=== PATIENT | female | born 1965 | race Caucasian/White ===

== ENCOUNTER 2017-05-16 13:13 | Emergency (ER) | payer SELFPAY ==
[2017-05-16] MEDS ORDERED: LIDOCAINE 2% VISCOUS SOLN 20 ML UDCUP PO ONE (13:40)
[2017-05-16] MEDS ORDERED: MAG HYDROX/AL HYDROX/SIMETH SUSP 30 ML UDCUP PO ONE (13:40)
[2017-05-16] MEDS ORDERED: METOCLOPRAMIDE HCL ORAL SOLN 10 MG/10 ML UDCUP PO ONE (13:40)
--- NOTE | 2017-05-16 13:44 | ER Document Report ---
Addendum entered and electronically signed by WILLEM DUKE MA 05/17/17 16:10 : Discharge - Discharge Clinical Impression: Suicidal ideation Condition: Stable Disposition: HOME, SELF-CARE Additional Instructions: DEPRESSION: Your evaluation reveals that you have mental depression. While symptoms may be vague, they often include disturbance of sleep, fatigue, loss of appetite , and general loss of interest in life. While depression may be a side effect of drugs, or a reaction to a major change in your life, many cases have no known cause. If depression is acute, and related to a major loss in your life, you can expect it to clear completely with time. If you have been depressed a long time , are prone to repeated bouts of depression or low mood, or have been thinking of suicide, get help. Depression can be treated with anti-depressant medication and counselling. Long-term depression will often take a few weeks to clear, even with appropriate medication. Follow-up care is important. SUICIDAL IDEATION: Suicidal ideation is a common medical term for thoughts about suicide, which may be as detailed as a formulated plan, without the suicidal act itself. Although most people who undergo suicidal ideation do not commit suicide, some go on to make suicide attempts. The range of suicidal ideation varies greatly from fleeting to detailed planning, role playing, and unsuccessful attempts. While thoughts about suicide are common, most people do not carry out serious actions to commit suicide. Based upon your evaluation and discussion with you, we do not believe you are currently at risk to act upon your thoughts of suicide. You have agreed to return to the Emergency Department, at any time , if you feel inclined to act upon your suicidal thoughts. FOLLOW-UP CARE: You have been given a list of community providers for outpatient therapy and medication management. It has been recommended for you to follow up with [facility] services for therapy and medication management but if you choose not to follow up with this provider you are encouraged to choose from any of the other providers in the community to establish care. Included in the resource list are the numbers for [facility] to utilize as needed. If you experience worsening or a significant change in your symptoms, notify the physician immediately or return to the Emergency Department at any time for re-evaluation. Referrals: [facility] [Outside] - Follow up as needed Original Note: ED Medical Screen (RME) - General Mode of Arrival: Wheelchair Information source: Patient - HPI Patient complains to provider of: SI and abdominal pain Onset: Other - see notes above Associated Symptoms: Other - see notes above <JOE BRIONES - Last Filed: 05/16/17 13:39> <WILLEM DUKE - Last Filed: 05/17/17 16:07> <NILSMANINDER Levi - Last Filed: 05/17/17 16:18> - General Chief Complaint: Suicidal Ideation Stated Complaint: PSYCH EVAL Time Seen by Provider: 05/16/17 13:33 Notes: 52 year old female with history of depression presents to the ED complaining of suicidal ideation and epigastric abdominal pain that has been intermittent for 3 years, but exacerbated a few days ago. Patient reports that today is the 2nd year anniversary of her 's . Patient has no plan and hasn't taken any medications. Patient reports that it feels like her 'rib is stabbing her'. Patient additionally complains of vomiting for the past 3 days only being able to keep water and coffee down. Patient also complains that her 'head is about to bust.' Patient reports she does not take any medication for suicidal ideation as she can't afford them. (JOE BRIONES) Past Medical History - General Information source: Patient - Social History Family history: Reviewed & Not Pertinent <JOE BRIONES - Last Filed: 05/16/17 13:39> Review of Systems - Review of Systems Constitutional: No symptoms reported EENT: No symptoms reported Cardiovascular: No symptoms reported Respiratory: No symptoms reported Gastrointestinal: See HPI, Abdominal pain, Vomiting Genitourinary: No symptoms reported Female Genitourinary: No symptoms reported Musculoskeletal: No symptoms reported Skin: No symptoms reported Hematologic/Lymphatic: No symptoms reported Neurological/Psychological: See HPI, Suicidal ideation -: Yes All other systems reviewed and negative <JOE BRIONES - Last Filed: 05/16/17 13:39> Physical Exam - General General appearance: Alert, Other - Tearful In distress: None - HEENT Head: Normocephalic, Atraumatic Eyes: Normal Extraocular movements intact: Yes Pupils: PERRL - Respiratory Respiratory status: No respiratory distress Breath sounds: Normal - Cardiovascular Rhythm: Regular Heart sounds: Normal auscultation - Abdominal Inspection: Normal Bowel sounds: Normal Tenderness: Tender - epigastric - Psychological Associated symptoms: Tearful <JOE BRIONES - Last Filed: 05/16/17 13:39> - Vital signs Vitals: Temp Pulse Resp BP Pulse Ox 98.6 F 95 22 H 139/107 H 96 05/16/17 13:19 05/16/17 13:19 05/16/17 13:19 05/16/17 13:19 05/16/17 13:19 Course - Laboratory Result Diagrams: 05/16/17 14:20 05/16/17 14:20 <MANINDER WRAY - Last Filed: 05/17/17 16:18> - Vital Signs Vital signs: Temp Pulse Resp BP Pulse Ox 98.5 F 77 16 126/73 H 94 05/17/17 13:40 05/17/17 13:40 05/17/17 13:40 05/17/17 13:40 05/17/17 13:40 - Laboratory Laboratory results interpreted by me: 05/16/17 05/16/17 05/16/17 14:20 14:20 14:20 WBC 12.1 H RBC 5.34 H Hgb 16.6 H Hct 49.4 H Absolute Neutrophils 9.0 H Calcium 10.3 H Urine Protein 100 H Urine Blood SMALL H Urine Urobilinogen 2.0 H Ur Leukocyte Esterase TRACE H Salicylates < 1.0 L Acetaminophen < 10 L Doctor's Discharge <BRIONESJOE - Last Filed: 05/16/17 13:39> <WILLEM DUKE - Last Filed: 05/17/17 16:07> <MANINDER WRAY - Last Filed: 05/17/17 16:18> - Discharge Clinical Impression: Suicidal ideation Condition: Stable Disposition: HOME, SELF-CARE Additional Instructions: DEPRESSION: Your evaluation reveals that you have mental depression. While symptoms may be vague, they often include disturbance of sleep, fatigue, loss of appetite , and general loss of interest in life. While depression may be a side effect of drugs, or a reaction to a major change in your life, many cases have no known cause. If depression is acute, and related to a major loss in your life, you can expect it to clear completely with time. If you have been depressed a long time , are prone to repeated bouts of depression or low mood, or have been thinking of suicide, get help. Depression can be treated with anti-depressant medication and counselling. Long-term depression will often take a few weeks to clear, even with appropriate medication. Follow-up care is important. SUICIDAL IDEATION: Suicidal ideation is a common medical term for thoughts about suicide, which may be as detailed as a formulated plan, without the suicidal act itself. Although most people who undergo suicidal ideation do not commit suicide, some go on to make suicide attempts. The range of suicidal ideation varies greatly from fleeting to detailed planning, role playing, and unsuccessful attempts. While thoughts about suicide are common, most people do not carry out serious actions to commit suicide. Based upon your evaluation and discussion with you, we do not believe you are currently at risk to act upon your thoughts of suicide. You have agreed to return to the Emergency Department, at any time , if you feel inclined to act upon your suicidal thoughts. FOLLOW-UP CARE: You have been given a list of community providers for outpatient therapy and medication management. It has been recommended for you to follow up with [facility] for therapy and medication management but if you choose not to follow up with this provider you are encouraged to choose from any of the other providers in the community to establish care. Included in the resource list are the numbers for Mobile [facility] to utilize as needed. If you experience worsening or a significant change in your symptoms, notify the physician immediately or return to the Emergency Department at any time for re-evaluation. Prescriptions: Divalproex Sodium [Depakote] 500 mg PO DAILY #14 tablet. Referrals: [facility] [Outside] - Follow up as needed Scribe Documentation - Scribe Written by Silvioe:: Melvin Sol, 05/16/2017 [id number] acting as scribe for :: Long <JOE BRIONES - Last Filed: 05/16/17 13:39>
[2017-05-16 14:35] LABS: ABSOLUTE BASOPHILS # (AUTO) 0.1 10^3/uL (0.0-0.2); ABSOLUTE EOSINOPHILS # (AUTO) 0.1 10^3/uL (0.0-0.6); ABSOLUTE LYMPHOCYTES (AUTO) 2.1 10^3/uL (0.5-4.7); ABSOLUTE MONOCYTES (AUTO) 0.8 10^3/uL (0.1-1.4); BASOPHILS % (AUTO) 1.1 % (0-2); HEMATOCRIT 49.4 % (36.0-47.0); HEMOGLOBIN 16.6 g/dL (12.0-15.5); LYMPHOCYTES % (AUTO) 17.3 % (13-45); MEAN CORPUSCULAR HEMOGLOBIN 31.1 pg (27.0-33.4); MEAN CORPUSCULAR HGB CONC 33.6 g/dL (32.0-36.0); MEAN CORPUSCULAR VOLUME 93 fl (80-97); MONOCYTES % (AUTO) 6.3 % (3-13); PLATELET COUNT 293 10^3/uL (150-450); RED BLOOD COUNT 5.34 10^6/uL (3.72-5.28); RED CELL DISTRIBUTION WIDTH 13.4 % (11.5-14.0); SEGMENTED NEUTROPHILS % (AUTO) 74.3 % (42-78); TOTAL CELLS COUNTED % (AUTO) 100 %; WHITE BLOOD COUNT 12.1 10^3/uL (4.0-10.5)
--- NOTE | 2017-05-16 14:46 | RADIOLOGY REPORT (SQ) ---
EXAM DESCRIPTION: CHEST SINGLE VIEW COMPLETED DATE/TIME: 05/16/2017 2:37 pm REASON FOR STUDY: epigastric pain COMPARISON: None. NUMBER OF VIEWS: One view. TECHNIQUE: Single frontal radiographic view of the chest acquired. LIMITATIONS: None. FINDINGS: LUNGS AND PLEURA: No opacities, masses or pneumothorax. No pleural effusion. MEDIASTINUM AND HILAR STRUCTURES: Suspect a small hiatal hernia. No suspicious contour abnormalities . HEART AND VASCULAR STRUCTURES: Heart normal in size. Normal vasculature. BONES: No acute findings. HARDWARE: None in the chest. OTHER: No other significant finding. IMPRESSION: No acute cardiopulmonary disease. Probable small hiatal hernia. TECHNICAL DOCUMENTATION: JOB ID: [id number] [employer]- All Rights Reserved
[2017-05-16 14:49] LABS: APPEARANCE,URINE CLOUDY; BILIRUBIN,URINE NEGATIVE (NEGATIVE); COLOR,URINE YELLOW; GLUCOSE, URINE NEGATIVE (NEGATIVE); KETONES,URINE NEGATIVE (NEGATIVE); LEUKOCYTE ESTERASE,URINE TRACE (NEGATIVE); NITRITE,URINE NEGATIVE (NEGATIVE); PROTEIN,URINE 100 mg/dL (NEGATIVE); URINE SPECIFIC GRAVITY 1.015
[2017-05-16 14:53] LABS: ALANINE AMINOTRANSFERASE 22 U/L (9-52); ALKALINE PHOSPHATASE 85 U/L (38-126); ANION GAP 14 (5-19); ASPARTATE AMINO TRANSFERASE 17 U/L (14-36); BILIRUBIN,DIRECT 0.4 mg/dL (0.0-0.4); BILIRUBIN,TOTAL 0.4 mg/dL (0.2-1.3); BLOOD UREA NITROGEN 8 mg/dL (7-20); CALCIUM 10.3 mg/dL (8.4-10.2); CARBON DIOXIDE 27 mmol/L (22-30); CHLORIDE 104 mmol/L (98-107); CREATINE KINASE 69 U/L (30-135); GLUCOSE 102 mg/dL (75-110); POTASSIUM 4.6 mmol/L (3.6-5.0); SODIUM 144.5 mmol/L (137-145); TOTAL PROTEIN 8.2 g/dL (6.3-8.2)
--- NOTE | 2017-05-16 14:56 | RADIOLOGY REPORT (SQ) ---
EXAM DESCRIPTION: KUB/ABDOMEN (SINGLE VIEW) COMPLETED DATE/TIME: 05/16/2017 2:37 pm REASON FOR STUDY: epigastric pain COMPARISON: None. NUMBER OF VIEWS: One view. TECHNIQUE: Supine radiographic image of the abdomen acquired. LIMITATIONS: None. FINDINGS: BOWEL GAS PATTERN: Scattered non-dilated small bowel loops. No obstructive pattern. CALCIFICATIONS: No suspicious calcifications. SOFT TISSUES: No gross mass or suggestion of organomegaly. HARDWARE: None in the abdomen.. BONES: No acute fracture. No worrisome bone lesions. OTHER: No other significant finding. IMPRESSION: NON-SPECIFIC BOWEL GAS PATTERN WITHOUT EVIDENCE FOR OBSTRUCTION. TECHNICAL DOCUMENTATION: JOB ID: [id number] [employer]- All Rights Reserved
[2017-05-16 15:02] LABS: URINE AMPHETAMINES SCREEN NEGATIVE; URINE BARBITURATES SCREEN NEGATIVE; URINE BENZODIAZEPINES SCREEN NEGATIVE; URINE COCAINE SCREEN NEGATIVE; URINE MARIJUANA (THC) SCREEN UNCONFIRMED POSITIVE; URINE METHADONE SCREEN NEGATIVE; URINE PHENCYCLIDINE SCREEN NEGATIVE
[2017-05-16 15:09] LABS: ACETAMINOPHEN < 10 ug/mL (10-30); ALCOHOL < 10 mg/dL (NONE DETECTED); SALICYLATE < 1.0 mg/dL (2.0-20.0)
[2017-05-16] MEDS ORDERED: ONDANSETRON 4 MG TAB.RAPDIS PO ONE (16:30)
[2017-05-16] MEDS ORDERED: ACETAMINOPHEN 325 MG TABLET PO ONE (16:41)
[2017-05-16] MEDS ORDERED: MIDAZOLAM 2 MG/2 ML INJ IV ONE (16:43)
[2017-05-16] MEDS ORDERED: FENTANYL CITRATE INJ/PF 100 MCG/2 ML AMPUL IV ONE (16:44)
[2017-05-16] MEDS ORDERED: CITALOPRAM HYDROBROMIDE 20 MG TABLET PO ONE (16:48)
[2017-05-16] MEDS ORDERED: BUSPIRONE HCL 10 MG TABLET PO ONE (16:49)
[2017-05-16] MEDS ORDERED: PAROXETINE HCL 20 MG TABLET PO ONE (16:57)
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
--- NOTE | 2017-05-16 17:15 | RADIOLOGY REPORT (SQ) ---
EXAM DESCRIPTION: CT HEAD WITHOUT COMPLETED DATE/TIME: 05/16/2017 5:02 pm REASON FOR STUDY: CELESTE COMPARISON: None. TECHNIQUE: Axial images acquired through the brain without intravenous contrast. Images reviewed wi th bone, brain and subdural windows. Images stored on PACS. All CT scanners at this facility use dose modulation, iterative reconstruction, and/or weight based d osing when appropriate to reduce radiation dose to as low as reasonably achievable (ALARA). [facility]: Dose Right [facility]: CareDose [facility]: Dose Right [facility]: Teradose 4D [facility]: timeplazza RADIATION DOSE: CT Rad equipment meets quality standard of care and radiation dose reduction techniq ues were employed. CTDIvol: 64.6 mGy. DLP: 1163 mGy-cm. mGy. LIMITATIONS: None. FINDINGS: VENTRICLES: Normal size and contour. CEREBRUM: No masses. No hemorrhage. No midline shift. No evidence for acute infarction. Normal gra y/white matter differentiation. No areas of low density in the white matter. CEREBELLUM: No masses. No hemorrhage. No alteration of density. No evidence for acute infarction. EXTRAAXIAL SPACES: No fluid collections. No masses. ORBITS AND GLOBE: No intra- or extraconal masses. Normal contour of globe without masses. CALVARIUM: No fracture. PARANASAL SINUSES: No fluid or mucosal thickening. SOFT TISSUES: No mass or hematoma. OTHER: No other significant finding. IMPRESSION: NORMAL BRAIN CT WITHOUT CONTRAST. EVIDENCE OF ACUTE STROKE: NO. COMMENT: Quality ID # [id number]: Final reports with documentation of one or more dose reduction techniques (e.g., Automated exposure control, adjustment of the mA and/or kV according to patient size, use of iterative reconstruction technique) TECHNICAL DOCUMENTATION: JOB ID: [id number] [facility]- All Rights Reserved
[2017-05-16] MEDS ORDERED: ZIPRASIDONE MESYLATE INJ/PF 20 MG SDV IM ONE (21:17)
[2017-05-16] MEDS ORDERED: TRAZODONE HCL 50 MG TABLET PO ONE (22:36)
[2017-05-17] MEDS ORDERED: BUSPIRONE HCL 10 MG TABLET PO SCH (06:00)
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
--- NOTE | 2017-05-17 08:50 | EKG REPORT ---
SEVERITY:- NORMAL ECG - SINUS RHYTHM : Confirmed by: Patricia Saab MD 17-May-2017 08:49:36
--- NOTE | 2017-05-17 09:52 | ER Document Report ---
Doctor's Note Notes: 05/17/17 09:52 As the rounding physician for our social patients, I have reviewed the chart, vitals, lab work. Patient has been examined and noted to be stable . I am awaiting mental health in put. 05/17/17 16:13 Reevaluated patient and she states that she feels safe to go home and denies any suicidal ideation at this time. She states she was able to refill her medications if they do not cause too much. I explained to her cost involved and she said she would be able to refill her medications. I discussed return precautions and if symptoms are progressing to return to the emergency department or seek help she agreed with plan..
[2017-05-17] MEDS ORDERED: PAROXETINE HCL 20 MG TABLET PO SCH (10:00)
--- NOTE | 2017-05-17 12:06 | PSYCHOLOGICAL NOTE ---
Psych Note - Psych Note Psych Note: Reason for Consult: Suicidal Ideation Consents given: None Patient is a 52 year old female who presented to the Emergency Department with a history of depression and current suicidal ideation and abdominal pain. Patient presented irritable and angry. She demanded to be discharged from the hospital. She stated she had a horrible night with the staff. She reported security was called unnecessarily and she was given a medication that started with the letter G that kept her awake all night. Patient denied suicidal ideation, intent or plan. She then stated she has wanted to kill herself every day for the last 51 years but has not done so. She stated, "I'm still alive, aren't I?" Patient bolted up in bed, visibly angry and stated she wanted to go home. Patient was alert and oriented to person, place, time and circumstance. Mood was angry and irritable with congruent affect. Patient denied current suicidal/ homicidal ideation, intent or plan. She did not appear to be responding to internal stimuli as evidenced by appropriate eye contact, maintaining conversation and staying on topic. No delusions or psychosis noted. Thought processes were organized and linear. Conversational speech was pressured for rate, tone and prosody. Intellectual abilities were estimated in the average range. Insight, judgment and impulse control were poor. 1. 296.80 (F31.9) Unspecified Bipolar and Related Disorder, per patient report 2. 300.00 (F41.9) Unspecified Anxiety Disorder, per patient report 3. 309.81 (F43.10) Post Traumatic Stress Disorder, per patient report Impression/Plan: Recommend continue IVC at this time. Recommend a medication change to include discontinuation of Paxil and one time dose of Zyprexa 10mg and Depakote 500mg. Patient's irritability and anger outbursts may possibly be caused by the introduction of Paxil. She evidences little insight, poor impulse control and poor judgment. Placement at an inpatient hospitalization will continue to be sought. Patient will be reassessed this afternoon to evaluate mood stability and need for continued IVC and placement. Consulted with Dr. Estrada regarding the care and management of this patient. ED physician in agreement with recommendation and disposition.
[2017-05-17] MEDS ORDERED: OLANZAPINE 5 MG TABLET PO ONE (12:12)
[2017-05-17] MEDS ORDERED: DIVALPROEX SODIUM 500 MG TAB.SR.24H PO ONE (12:12)
--- NOTE | 2017-05-17 16:02 | PSYCHOLOGICAL NOTE ---
Psych Note - Psych Note Psych Note: Reason for Consult: Suicidal Ideation Consents given: None Patient continues to present irritable but does seem somewhat less angry. She stated she wanted to go home and take care of her animals. She stated the medication change had made her sleepy but she felt calm. 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 Patient stated she "probably won't fill it." Patient reported it was too much of a financial burden. Patient agreed to take the resource list of community providers for outpatient services and to possibly get assistance through a community provider to fill her prescription. Patient has been observed, over the last few hours, being appropriate, calm and sleeping. She has not engaged in any verbally aggressive behaviors and she has not been crying. Patient was alert and oriented to person, place, time and circumstance. Mood was irritable with congruent affect. Patient denied current suicidal/homicidal ideation, intent or plan. She did not appear to be responding to internal stimuli as evidenced by appropriate eye contact, maintaining conversation and staying on topic. No delusions or psychosis noted. Thought processes were organized and linear. Conversational speech was slightly pressured for rate, tone and prosody. Intellectual abilities were estimated in the average range. Insight, judgment and impulse control were poor. 1. 296.80 (F31.9) Unspecified Bipolar and Related Disorder, per patient report 2. 300.00 (F41.9) Unspecified Anxiety Disorder, per patient report 3. 309.81 (F43.10) Post Traumatic Stress Disorder, per patient report Impression/Plan: Recommend rescind IVC at this time. Patient no longer meets [place] G.S[place] IVC criteria. Patient denied suicidal/homicidal ideation, intent or plan. Patient is not considered a danger to herself or others at this time. Patient's behavioral outbursts yesterday were likely in response to the anniversary of her fiancee's and the introduction of Paxil appeared to exacerbate the patient's crisis. Patient is encouraged to let other provider's know of her reaction to Paxil. Provided education regarding services available in the area for self pay patients. Consulted with Dr. Estrada regarding the care and management of this patient. ED physician in agreement with recommendation and disposition.
[2017-05-17 16:48] VITALS: BP 134/83
== END 2017-05-17 16:56 | disposition home or self-care (01) ==
LOC: ER 13:13
DX: R45.851 Suicidal ideations (principal); R10.13 Epigastric pain; R11.2 Nausea with vomiting, unspecified; F17.200 Nicotine dependence, unspecified, uncomplicated
CPT/HCPCS: 93005; 36415; 80307 ×4; 82550; 84702; 85025; 80053; 81001; 84484; 71045; 74018; 70450; 93010; S0119; J3490; J3486